=== PATIENT | female | born 1945 | race Caucasian/White ===

== ENCOUNTER → 2024-04-02 | Outpatient (CLI) | payer OTHER ==
[2024-04-02 21:55] VITALS: PULSE 139; RESP 8
[2024-04-02 22:30] VITALS: PULSE 112; RESP 18
[2024-04-02 23:03] VITALS: PULSE 127; RESP 16
[2024-04-02 23:31] VITALS: PULSE 119; RESP 14
[2024-04-03] VITALS (11 sets, daily range): PULSE 65–141; RESP 12–16
== END | disposition home or self-care (01) ==
LOC: SLP 20:37
PROVIDERS: ATTEND Family Medicine
DX: G47.33 Obstructive sleep apnea (adult) (pediatric) (principal)
CPT/HCPCS: 95810

== ENCOUNTER 2024-04-26 18:25 | Emergency (ER) | payer OTHER ==
[~2024-04-26] VITALS: Ht 165.1 cm; Wt 63.5 kg
[~2024-04-26 18:25] MED LIST: AMIO200T44 PO; APIX5TAB PO; ATOR20TA65 PO; BUSP15 PO; CLON0.1T PO; DIAZ5TAB PO; HYDR-3421 PO; LEVO88CA4 PO; LOSA50TA64 PO; METO25 PO; SERT-439 PO; TRAV2.5D6 OP; TRAZ-253 PO; ZOLP10TA2 PO
--- NOTE | 2024-04-26 18:39 | ERN ---
General Chief Complaint: Suicidal Ideation Stated Complaint: SUICIDAL IDEATIONS Time Seen by MD: 18:35 Time Seen by Midlevel: 18:35 Source: patient, EMS History of Present Illness Initial Comments 78F, hx afib, HTN, DLD, BIB EMS from home for depression, lack of eating, and SI. Patient reports that she has an hx of depression, not currently medicated. She reports that lately she has not wanted to live, so she has stopped taking her medications thinking that she'll . No fevers, vomiting, CP or other symptoms. She denies ETOH use or drug abuse. Allergies: Coded Allergies: Penicillins (Unverified Allergy, Unknown, 04/16/24) Home Meds Active Scripts Metoprolol Tartrate (Lopressor) 25 Mg Tab, 25 MG PO BID, #60 TAB Prov:HECTOR ROLAND NURSE FIRST ASSIST 04/22/24 Apixaban (Eliquis) 5 Mg Tablet, 5 MG PO BID, #60 TAB Prov:HECTOR ROLNAD NURSE FIRST ASSIST 04/22/24 Amiodarone HCl (Pacerone) 200 Mg Tablet, 200 MG PO BID, #60 TAB Prov:HECTOR ROLAND NURSE FIRST ASSIST 04/22/24 Reported Medications Losartan Potassium (Losartan Potassium) 50 Mg Tablet, 1 TAB PO DAILY for 30 Days, #30 TAB 0 Refills 04/19/24 Zolpidem Tartrate (Ambien) 10 Mg Tablet, 1 TAB PO HSPRN PRN for sleep for 30 Days, #30 TAB 0 Refills 04/19/24 Buspirone HCl (Buspar) 15 Mg Tab, 1 TAB PO HS for 30 Days, #60 TAB 0 Refills 04/19/24 Sertraline HCl (Sertraline HCl) 50 Mg Tablet, 1 TAB PO HS for 30 Days, #30 TAB 0 Refills 04/19/24 Levothyroxine Sodium (Levothyroxine) 88 Mcg Capsule, 1 CAP PO ACBKFST for 30 Days, #30 CAP 0 Refills 04/19/24 Hydroxyzine HCl (Hydroxyzine HCl) 25 Mg Tablet, 1 TAB PO TID for anxiety for 30 Days, #90 TAB 0 Refills 04/19/24 Trazodone HCl (Desyrel) 50 Mg Tab, 1 TAB PO HS for 30 Days, #30 TAB 0 Refills 04/19/24 Diazepam (Valium) 5 Mg Tablet, 1 TAB PO [id number] PRN for anxiety for 30 Days, #60 TAB 0 Refills 04/19/24 Atorvastatin Calcium (Atorvastatin Calcium) 20 Mg Tablet, 1 TAB PO HS for 30 Days, #30 TAB 0 Refills 04/19/24 Travoprost (Travoprost) 0.004 % Drops, 1 DROP OP HS for 30 Days, #2.5 ML 0 Refills 04/19/24 Clonidine HCl (Clonidine HCl) 0.1 Mg Tablet, 1 TAB PO BID for 30 Days, #30 TAB 0 Refills 04/19/24 Discontinued Reported Medications Valsartan (Valsartan) 160 Mg Tablet, 1 TAB PO DAILY for 30 Days, #30 TAB 0 R efills 04/19/24 Metoprolol Succinate (Metoprolol Succinate) 25 Mg Tab.er.24h, 1 TAB PO DAILY for 30 Days, #30 TAB 0 Refills 04/19/24 Past Medical History Past Medical History: A-Fib, Other Medical History Other: SUICIDAL IDEATIONS Past Surgical History: Unknown Female( History) History: Not Applicable ROS Dictation CONSTITUTIONAL: No chills, no fever, no weakness, no diaphoresis, no malaise. HEAD/FACE: No signs of trauma. EENT: No eye pain, no blurred vision, no tearing, no double vision, no ear pain, no ear discharge, no nose pain, no nasal congestion, no throat pain, no throat swelling, no mouth pain. RESPIRATORY: No cough, no orthopnea, no SOB, no stridor, no wheezing. CARDIOVASCULAR: No chest pain, no edema, no palpitations, no syncope. GASTROINTESTINAL/ABDOMINAL: No abdominal pain, no constipation, no diarrhea, no nausea, no vomiting. GENITOURINARY: No abnormal discharge, no dysuria, no frequent urination, no hematuria. No complaints of pain in the genitals. MUSCULOSKELETAL: No back pain, no gout, no joint pain, no joint swelling, no muscle pain, no muscle stiffness, no neck pain. INTEGUMENTARY: No change in color, no change in hair/nails, no dryness, no lesion, no lumps, no rash. NEUROLOGICAL/PSYCH: Suicidal ideation HEMATOLOGIC/LYMPHATIC: Not anemic, no history of blood clots, no apparent bleeding, no bruising, glands not swollen. All Systems Negative, Except as Noted. Physical Exam Physical Exam Dictation VITAL SIGNS: Reviewed. GENERAL APPEARANCE: Alert, oriented x3, no acute distress, obese. HEAD AND FACE: Non-traumatic. EYES: PERRL, pink conjunctivas, eyelid no trauma, anterior chamber clear. EARS: Pinnas intact and no signs of trauma or erythema. Ear canals clear and no discharge. TMs no erythema. NOSE: No discharge, no bleeding. OROPHARYNX: Mouth normal, teeth no caries, tongue pink. Pharynx clear, no erythema. Tonsils no exudates, no abscesses noted. Mucous membrane moist. NECK: Supple, non-tender, no thyromegaly, no masses, no JVD, no bruits. BREAST: Deferred. CHEST: No tenderness, no crepitus, no paradoxical movement, no retractions. LUNGS: Clear, well-ventilated, symmetric, no rales, no wheezing, no rhonchi, no stridor, good breath sounds bilaterally. HEART: Regular rate, regular rhythm, no murmur, no gallops. VASCULAR: No peripheral edema. ABDOMEN: Soft, positive bowel sounds, nondistended, no guarding, nontender, no rebound, no masses no hepatomegaly, no splenomegaly, no Alfaro's sign, no hernias. RECTAL: Deferred. GENITAL: Deferred. NEUROLOGICAL: Normal speech, gross motor function intact, gross sensory function intact. MUSCULOSKELETAL: Neck nontender, full range of motion, back nontender, full range of motion. EXTREMITIES: Nontender, full range of motion. SKIN: Color pink, dry, no turgor, no rash, no lacerations, no abrasions, no contusions. LYMPHATICS: Deferred. Results Laboratory and Microbiology Lab and Micro Result Laboratory Tests Test 04/26/24 18:43 04/26/24 20:42 White Blood Count 6.4 K/uL (4.8-10.8) Red Blood Count 3.33 MIL/uL (4.00-5.50) L Hemoglobin 9.9 g/dL (12.0-16.0) L Hematocrit 29.9 % (36-48) L Mean Corpuscular Volume 89.8 fL (79-99) Mean Corpuscular Hemoglobin 29.7 pg (27.0-33.0) Mean Corpuscular Hemoglobin Concent 33.1 g/dL (32.0-36.0) Red Cell Distribution Width 14.9 % (11.0-15.5) Platelet Count 277 K/uL (130-400) Mean Platelet Volume 10.3 fL (7.5-10.5) Immature Granulocyte % (Auto) 0.5 % (0-1) Neutrophils (%) (Auto) 65.1 % (40.0-77.0) Lymphocytes (%) (Auto) 20.4 % (21.0-51.0) L Monocytes (%) (Auto) 9.7 % (3.0-13.0) Eosinophils (%) (Auto) 4.0 % (0.0-8.0) Basophils (%) (Auto) 0.3 % (0.0-5.0) Neutrophils # (Auto) 4.2 K/uL (1.8-7.7) Lymphocytes # (Auto) 1.3 K/uL (1.0-4.8) Monocytes # (Auto) 0.6 K/uL (0.1-1.0) Eosinophils # (Auto) 0.26 K/uL (0.00-0.70) Basophils # (Auto) 0.02 K/uL (0.00-0.20) Absolute Immature Granulocyte (auto 0.03 K/uL (0-1) Nucleated Red Blood Cells 0.0 % (0.0-0.19) Sodium Level 138 mmol/L (136-145) Potassium Level 3.7 mmol/L (3.5-5.1) Chloride Level 104 mmol/L (101-111) Carbon Dioxide Level 29 mmol/L (21-32) Blood Urea Nitrogen 5 mg/dL (7-18) L Creatinine 0.9 mg/dL (0.5-1.0) Glomerular Filtration Rate Calc 66 mL/min (>90) Random Glucose 98 mg/dL (70-105) Total Calcium 9.3 mg/dL (8.5-10.1) Total Creatine Kinase 117 U/L (21-232) # Salicylates Level < 2.8 mg/dL (2.8-20.0) L Acetaminophen Level < 1 mcg/mL (10-30) L Serum Alcohol < 3 mg/dL (0-10) Urine Color COLORLESS (YELLOW) Urine Appearance CLEAR (CLEAR) Urine pH 6.0 (5.0-8.0) Urine Specific [place] 1.003 (1.001-1.031) Urine Protein NEGATIVE mg/dL (NEGATIVE) Urine Glucose (UA) NEGATIVE mg/dL (NEGATIVE) Urine Ketones NEGATIVE mg/dL (NEGATIVE) Urine Occult Blood NEGATIVE (NEGATIVE) Urine Nitrate NEGATIVE (NEGATIVE) Urine Bilirubin NEGATIVE mg/dL (NEGATIVE) Urine Urobilinogen 0.2 mg/dL (0.2-1.0) Urine Leukocyte Esterase 75 [place]/uL (NEGATIVE) H Urine RBC 0-1 /HPF (0-1) Urine WBC 6-10 /HPF (0-1) H Urine Squamous Epithelial Cells RARE /HPF (0-2) Urine Bacteria None /HPF (None Seen) Urine Opiates Screen NEGATIVE (NEGATIVE) Urine Barbiturates Screen NEGATIVE (NEGATIVE) Urine Phencyclidine Screen NEGATIVE (NEGATIVE) Urine Amphetamines Screen NEGATIVE (NEGATIVE) Urine Benzodiazepines Screen NEGATIVE (NEGATIVE) Urine Cocaine Screen NEGATIVE (NEGATIVE) Urine Marijuana (THC) Screen NEGATIVE (NEGATIVE) Labs Reviewed?: Yes EKG/XRAY/US/CT/MRI X-RAY Comment REASON: cp ORDERING PHYSICIAN: CHINO CALLES DO PROCEDURE: CXR1VW - CHEST 1VW CHEST 1VW HISTORY: Chest pain COMPARISON: None FINDINGS: A frontal projection of the chest was obtained. Prominent interstitial markings are seen with possible superimposed infiltrates. The heart is borderline enlarged. Degenerative changes are seen. No evidence of aortic calcification is seen. IMPRESSION: 1. Prominent interstitial markings are seen with possible superimposed infiltrates. DICTATED BY: MONY BUTTERFIELD MD DATE: 04/26/242051 MDM MDM: Differential diagnosis: Suicide ideation, psychosis, depression Rationale: 78F, hx afib, HTN, DLD, BIB EMS from home for depression, lack of eating, and SI. Patient reports that she has an hx of depression, not currently medicated. She reports that lately she has not wanted to live, so she has stopped taking her medications thinking that she'll . No fevers, vomiting, CP or other symptoms. She denies ETOH use or drug abuse. Per physical examination patient is in no acute distress, nonlabored breathing. Labs obtained indicate anemia with hemoglobin of 9.9 otherwise nonspecific. Drug screen negative. Patient is medically cleared for psychiatric evaluation. Patient accepted at [facility] for psychiatric inpatient. Previous outside records reviewed: Old ER visits. Risk of complication and/or morbidity or mortality of patient management: None Medications-Per medication reconciliation Need for hospitalization: Patient does meet criteria for hospitalization at psychiatric inpatient facility Need for emergency major/minor surgery: No There are no social concerns with this patient. Prescription drug management Prescriptions will include symptomatic care Patient's prior external medical records from other ER visits were reviewed by me as indicated. Prior testing and results from previous visits were reviewed. Prior tests were taken into account with medical decision making and resource utilization, independent historian/historians were used to obtain complete medical history. I independently interpreted the test that were performed, results were reviewed by me and considered findings on radiology if ordered. Medical management and examination interpretation discussions were had by me with other qualified healthcare professionals as indicated for the patient's care. ED Course Orders Procedure Category Date Status Time Cbc With Differential LAB 04/26/24 Complete 18:28 Alcohol, Blood LAB 04/26/24 Complete 18:28 Salicylate LAB 04/26/24 Complete 18:28 Acetaminophen LAB 04/26/24 Complete 18:28 Urinalysis Profile LAB 04/26/24 Complete 18:28 Chest 1vw RAD 04/26/24 Resulted 18:28 12 Lead Ekg Tracing- EKG 04/26/24 Complete Technical 18:28 0.9%Nacl 1000ml (Ns PHA 04/26/24 Complete 1000ml) 18:30 Creatine Kinase, Total LAB 04/26/24 Complete 18:28 Basic Metabolic Panel LAB 04/26/24 Complete 18:28 Drug Screen Urine LAB 04/26/24 Complete 18:28 Culture Urine JUAN F 04/26/24 In Process 21:33 Current Medications Medications (Trade) Dose Ordered Sig/Kathy Route PRN Reason Start Time Stop Time Status Last Admin Dose Admin Sodium Chloride 1,000 ml @ 125 mls/hr ONCE ONCE IV 04/26/24 18:30 04/27/24 02:29 DC 04/26/24 20:02 Vital Signs Date Time Temp Pulse Resp B/P (MAP) Pulse Ox O2 Delivery O2 Flow Rate FiO2 04/27/24 05:50 98.2 65 17 123/77 98 Room Air* 0 04/27/24 03:15 98.4 61 16 132/85 98 Room Air* 0 21 04/27/24 01:49 98.6 63 18 126/80 98 Room Air* 0 04/27/24 00:36 98.6 62 18 128/76 98 Room Air* 0 21 04/26/24 21:37 98.8 62 18 132/74 98 Room Air* 0 21 04/26/24 20:02 98.8 66 18 154/64 98 Room Air* 0 21 04/26/24 18:40 98.8 62 18 150/70 98 Room Air* 0 21 04/26/24 18:28 98.8 65 20 131/64 98 Room Air 0 DX & DISP Disposition: Transfer (Psychiatric inpatient facility) Departure Impression: Primary Impression: Suicide ideation Condition: Stable Referrals: GELY FERREIRA DO (PCP) I performed the substantive portion of the visit. I have reviewed and personally made and approve the management plan that is documented in the notes by myself or the TANIA. I acknowledge full responsibility for the patient's management plan. CHINO CALLES DO Apr 26, 2024 18:39 JEFFREY CAMACHO Apr 27, 2024 01:55
[2024-04-26 18:51] LABS: BASOPHILS # (AUTO) 0.02 K/uL (0.00-0.20); BASOPHILS % (AUTO) 0.3 % (0.0-5.0); EOSINOPHILS # (AUTO) 0.26 K/uL (0.00-0.70); HEMATOCRIT 29.9 % (36-48); IMMATURE GRANULOCYTE ABSOLUTE 0.03 K/uL (0-1); LYMPHOCYTES # (AUTO) 1.3 K/uL (1.0-4.8); LYMPHOCYTES % (AUTO) 20.4 % (21.0-51.0); MEAN CORPUSCULAR HEMOGLOBIN 29.7 pg (27.0-33.0); MEAN CORPUSCULAR HGB CONC 33.1 g/dL (32.0-36.0); MEAN CORPUSCULAR VOLUME 89.8 fL (79-99); MONOCYTES # (AUTO) 0.6 K/uL (0.1-1.0); MONOCYTES % (AUTO) 9.7 % (3.0-13.0); NEUTROPHILS # (AUTO) 4.2 K/uL (1.8-7.7); NEUTROPHILS % (AUTO) 65.1 % (40.0-77.0); PLATELET COUNT (AUTO) 277 K/uL (130-400); RED BLOOD CELL COUNT(AUTO) 3.33 MIL/uL (4.00-5.50); RED CELL DISTRIBUTION WIDTH 14.9 % (11.0-15.5); WHITE BLOOD COUNT (AUTO) 6.4 K/uL (4.8-10.8)
[2024-04-26 19:10] LABS: CARBON DIOXIDE 29 mmol/L (21-32); CHLORIDE 104 mmol/L (101-111); CREATININE 0.9 mg/dL (0.5-1.0); GLOMERULAR FILTR. RATE CALC 66 mL/min (>90); GLUCOSE,RANDOM 98 mg/dL (70-105); POTASSIUM 3.7 mmol/L (3.5-5.1); SODIUM SERUM 138 mmol/L (136-145); UREA NITROGEN, BLOOD 5 mg/dL (7-18)
[2024-04-26 19:14] LABS: ALCOHOL, BLOOD < 3 mg/dL (0-10); CREATINE KINASE, TOTAL 117 U/L (21-232)
[2024-04-26 19:15] LABS: ACETAMINOPHEN < 1 mcg/mL (10-30); SALICYLATE < 2.8 mg/dL (2.8-20.0)
[2024-04-26] MEDS: 0.9%NACL 1000ML 1,000 ML IV ONE (20:02)
--- NOTE | 2024-04-26 20:56 | HMCIMG ---
CHEST 1VW HISTORY: Chest pain COMPARISON: None FINDINGS: A frontal projection of the chest was obtained. Prominent interstitial markings are seen with possible superimposed infiltrates. The heart is borderline enlarged. Degenerative changes are seen. No evidence of aortic calcification is seen. IMPRESSION: 1. Prominent interstitial markings are seen with possible superimposed infiltrates.
[2024-04-26 21:15] LABS: APPEARANCE,URINE CLEAR (CLEAR); BILIRUBIN,URINE NEGATIVE (NEGATIVE); COLOR,URINE COLORLESS (YELLOW); GLUCOSE, URINE (UA) NEGATIVE (NEGATIVE); KETONES,URINE NEGATIVE (NEGATIVE); LEUKOCYTE ESTERASE ,URINE 75 Leu/uL (NEGATIVE); NITRATE,URINE NEGATIVE (NEGATIVE); OCCULT BLOOD,URINE NEGATIVE (NEGATIVE); PROTEIN,URINE NEGATIVE (NEGATIVE); UROBILINOGEN,URINE 0.2 mg/dL (0.2-1.0)
[2024-04-26 21:22] LABS: AMPHET/METH SCREEN,URINE NEGATIVE (NEGATIVE); BARBITURATE SCREEN, URINE NEGATIVE (NEGATIVE); BENZODIAZEPINES SCREEN,URINE NEGATIVE (NEGATIVE); CANNABINOID SCREEN,URINE NEGATIVE (NEGATIVE); COCAINE SCREEN,URINE NEGATIVE (NEGATIVE); OPIATE SCREEN,URINE NEGATIVE (NEGATIVE); PHENCYCLIDINE SCREEN,URINE NEGATIVE (NEGATIVE)
[2024-04-26 21:33] LABS: ADD UA MICROSCOPIC YES
--- NOTE | 2024-04-26 21:33 | NUR ---
SKYE JOYA CONTACTED TO INITIATE SCREENING
[2024-04-26 21:42] LABS: RBC,URINE 0-1 /HPF (0-1); SQUAMOUS EPITHELIAL CELL,UR RARE /HPF (0-2)
--- NOTE | 2024-04-26 21:51 | NUR ---
SPOKE WITH GUEVARA SILVEIRA, [facility], WILL BE HERE TO SCREEN PATIENT IN APPROXIMATELY 2 HOURS.
--- NOTE | 2024-04-27 00:37 | NUR ---
TROPICASL AT BEDSIDE ASSESSING PATIENT
--- NOTE | 2024-04-27 01:30 | NUR ---
PER CEE HAQ, PATIENT WILL BE REFERRED FOR INPATIENT TREATMENT DUE TO THE FACT THAT PATIENT LIVES ALONE AND DOES NOT HAVE ANYONE TO SAFEGUARD THE PATIENT IF DISCHARGED.
--- NOTE | 2024-04-27 05:30 | EKG ---
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 Supervisor: [id number] : 1945 Requested By: CHINO CALLES Order Number: [id number] Reading MD: Fatimah Ojeda Measurements Intervals [place] Rate: 68 P: 0 MT: 63 QRS: 33 QRSD: 92 T: 39 QT: 423 QTc: 426 Interpretive Statements Sinus rhythm Ventricular premature complex Biatrial enlargement Borderline ST elevation, lateral leads Compared to ECG 04/16/2024 17:57:28 Ventricular premature complex(es) now present Atrial abnormality now present Atrial fibrillation no longer present ST (T wave) deviation still present Electronically Signed On 04-27-2024 08:46:05 [employer]OCK [employer]IM[employer] INSTRU[employer] by Fatimah Ojeda Please click the below link to view image of tracing.
[2024-04-27 05:50] VITALS: BP 123/77; PULSE 65; RESP 17; TEMP 98.2; O2SAT 98
--- NOTE | 2024-04-27 06:31 | NUR ---
REPORT GIVEN TO BHARATHI EDDY AT [facility]. AWAITING TRANSPORTATION BY [facility], WILL CALL [facility] WHEN PATIENT LEAVES ER WITH [facility]. [phone]
== END 2024-04-27 06:54 ==
LOC: EDH 18:25
DX: R45.851 Suicidal ideations (principal); F32.A Depression, unspecified; I10 Essential (primary) hypertension; I48.91 Unspecified atrial fibrillation; Z79.01 Long term (current) use of anticoagulants; Z79.899 Other long term (current) drug therapy; Z88.0 Allergy status to penicillin
CPT/HCPCS: 99285; 71045; 82550; 80048; 80305; 85025; 87086; 36415; 93005; 81001; G0481; J7030

== ENCOUNTER 2024-09-09 12:33 | Emergency (ER) | payer OTHER ==
[~2024-09-09] VITALS: Ht 162.6 cm; Wt 56.2 kg
[~2024-09-09 12:33] MED LIST changes: -LEVO88CA4 PO; +LEVO88CA5 PO; +ZOLP-685 PO; -ZOLP10TA2 PO
--- NOTE | 2024-09-09 12:48 | ERN ---
ED Note History of Present Illness Stated Complaint: OTHER Time Seen by MD: 12:34 Dictation: PATIENT IS A 78-YEAR-OLD FEMALE COMING IN VIA EMS AFTER HER NEIGHBOR WHERE THEY ARE WHEN SHE WAS WALKING OUT OF HER HOUSE TELLING HIM THAT SHE WAS GOING TO BE WALKING TO THE STORE SHE SAID SHE DOES HAVE ROUTINELY HOWEVER THE NEIGHBORS NOTICED THAT SHE HAD A STRONG GAS SMELL IN HER HOUSE AND THAT HER GAS STOVE WAS TURNED OFF. SHE IS CURRENTLY ALERT AND ORIENTED X4 SPEECH IS CLEAR SHE IS FEELING WEEKS SINCE YESTERDAY BUT NO OTHER COMPLAINTS OF VOICE. Allergies: Coded Allergies: Penicillins (Unverified Allergy, Unknown, 04/16/24) Home Meds Active Scripts Metoprolol Tartrate (Lopressor) 25 Mg Tab, 25 MG PO BID, #60 TAB Prov:HECTOR ROLAND COFFEE GRINDER 04/22/24 Apixaban (Eliquis) 5 Mg Tablet, 5 MG PO BID, #60 TAB Prov:HECTOR ROLAND COFFEE GRINDER 04/22/24 Amiodarone HCl (Pacerone) 200 Mg Tablet, 200 MG PO BID, #60 TAB Prov:HECTOR ROLAND COFFEE GRINDER 04/22/24 Reported Medications Losartan Potassium (Losartan Potassium) 50 Mg Tablet, 1 TAB PO DAILY for 30 Days, #30 TAB 0 Refills 04/19/24 Zolpidem Tartrate (Ambien) 10 Mg Tablet, 1 TAB PO HSPRN PRN for sleep for 30 Days, #30 TAB 0 Refills 04/19/24 Buspirone HCl (Buspar) 15 Mg Tab, 1 TAB PO HS for 30 Days, #60 TAB 0 Refills 04/19/24 Sertraline HCl (Sertraline HCl) 50 Mg Tablet, 1 TAB PO HS for 30 Days, #30 TAB 0 Refills 04/19/24 Levothyroxine Sodium (Levothyroxine) 88 Mcg Capsule, 1 CAP PO ACBKFST for 30 Days, #30 CAP 0 Refills 04/19/24 Hydroxyzine HCl (Hydroxyzine HCl) 25 Mg Tablet, 1 TAB PO TID for anxiety for 30 Days, #90 TAB 0 Refills 04/19/24 Trazodone HCl (Desyrel) 50 Mg Tab, 1 TAB PO HS for 30 Days, #30 TAB 0 Refills 04/19/24 Diazepam (Valium) 5 Mg Tablet, 1 TAB PO [id number] PRN for anxiety for 30 Days, #60 TAB 0 Refills 04/19/24 Atorvastatin Calcium (Atorvastatin Calcium) 20 Mg Tablet, 1 TAB PO HS for 30 Days, #30 TAB 0 Refills 04/19/24 Travoprost (Travoprost) 0.004 % Drops, 1 DROP OP HS for 30 Days, #2.5 ML 0 Refills 04/19/24 Clonidine HCl (Clonidine HCl) 0.1 Mg Tablet, 1 TAB PO BID for 30 Days, #30 TAB 0 Refills 04/19/24 Past Medical History Past Medical History: A-Fib, Other Additional Past Medical Hx: SUICIDAL IDEATIONS Surgical History: Unknown History: Not Applicable RN Note Reviewed/Agreed w/PFSH: Yes Review of System Dictation CONSTITUTIONAL: NEGATIVE EXCEPT FOR HPI HEAD/FACE: NEGATIVE EXCEPT FOR HPI EENT: NEGATIVE EXCEPT FOR HPI RESPIRATORY: NEGATIVE EXCEPT FOR HPI MILD SOB GASTROINTESTINAL/ABDOMINAL: NEGATIVE EXCEPT FOR HPI GENITOURINARY: NEGATIVE EXCEPT FOR HPI MUSCULOSKELETAL: NEGATIVE EXCEPT FOR HPI INTEGUMENTARY: NEGATIVE EXCEPT FOR HPI NEUROLOGICAL/PSYCH: NEGATIVE EXCEPT FOR HPI HEMATOLOGIC/LYMPHATIC: NEGATIVE EXCEPT FOR HPI ALL SYSTEMS NEGATIVE, EXCEPT NOTED ABOVE. 13 POINT REVIEW OF SYSTEMS ASSESSED AND ALL NEGATIVE EXCEPT FOR ABOVE. Initial Vital Sign VS Vital Signs Date Time Temp Pulse Resp B/P (MAP) Pulse Ox O2 Delivery O2 Flow Rate FiO2 09/09/24 12:35 97.9 76 20 138/70 97 Room Air 09/09/24 13:30 0 21 Physical Exam Dictation VITAL SIGNS REVIEWED GENERAL APPEARANCE: ALERT, ORIENTED X 3, NO ACUTE DISTRESS, WELL DEVELOPED, NOURISHED. HEAD AND FACE: NON-TRAUMATIC. EYES: PERRL, PINK CONJUNCTIVAS, EYELID NO TRAUMA, ANTERIOR CHAMBER WITH ARCUS SENILIS. EARS: PINNAS INTACT AND NO SIGNS OF TRAUMA OR ERYTHEMA EAR CANALS CLEAR AND NO DISCHARGE TM NO ERYTHEMA NOSE: NO DISCHARGE, NO BLEEDING. OROPHARYNX: MOUTH NORMAL, TONGUE PINK, PHARYNX CLEAR,NO ERYTHEMA, TONSILS NO EXUDATES, NO ABSCESSES NOTED, MUCOUS MEMBRANE MOIST NECK: SUPPLE, NON-TENDER, NO THYROMEGALY, NO MASSES, NO JVD, NO BRUITS BREAST:DEFERRED CHEST:NO TENDERNESS, NO CREPITUS, NO PARADOXICAL MOVEMENT, NO RETRACTIONS LUNGS:CLEAR, WELL-VENTILATED, SYMMETRIC, NO RALES, NO WHEEZING, NO RHONCHI, NO STRIDOR, GOOD BREATH SOUNDS BILATERALLY HEART: REGULAR RATE, REGULAR RHYTHM, NO MURMUR, NO GALLOPS VASCULAR: NO PERIPHERAL EDEMA, ABDOMEN: SOFT, POSITIVE BOWEL SOUNDS, NONDISTENDED, NO GUARDING, NONTENDER, NO REBOUND, NO MASSES NO HEPATOMEGALY, NO SPLENOMEGALY, NO JONES'S SIGN, NO HERNIAS. RECTAL: DEFERRED GENITAL: DEFERRED NEUROLOGICAL: NORMAL SPEECH, MOTOR FUNCTION INTACT, SENSORY FUNCTION INTACT MUSCULOSKELETAL: NECK NONTENDER, FULL RANGE OF MOTION, BACK NONTENDER, FULL RANGE OF MOTION, EXTREMITIES: NONTENDER, FULL RANGE OF MOTION SKIN: COLOR PINK, DRY, NO TURGOR, NO RASH, NO LACERATIONS, NO ABRASIONS, NO CONTUSIONS. LYMPHATIC: DEFERRED Results (Laboratory/Radiology) Laboratory/Radiology Laboratory Tests Test 09/09/24 12:59 White Blood Count 5.1 K/uL (4.8-10.8) Red Blood Count 3.86 MIL/uL (4.00-5.50) L Hemoglobin 11.2 g/dL (12.0-16.0) L Hematocrit 33.8 % (36-48) L Mean Corpuscular Volume 87.6 fL (79-99) Mean Corpuscular Hemoglobin 29.0 pg (27.0-33.0) Mean Corpuscular Hemoglobin Concent 33.1 g/dL (32.0-36.0) Red Cell Distribution Width 17.5 % (11.0-15.5) H Platelet Count 272 K/uL (130-400) Mean Platelet Volume 10.0 fL (7.5-10.5) Immature Granulocyte % (Auto) 0.2 % (0-1) Neutrophils (%) (Auto) 63.3 % (40.0-77.0) Lymphocytes (%) (Auto) 21.9 % (21.0-51.0) Monocytes (%) (Auto) 10.1 % (3.0-13.0) Eosinophils (%) (Auto) 3.9 % (0.0-8.0) Basophils (%) (Auto) 0.6 % (0.0-5.0) Neutrophils # (Auto) 3.2 K/uL (1.8-7.7) Lymphocytes # (Auto) 1.1 K/uL (1.0-4.8) Monocytes # (Auto) 0.5 K/uL (0.1-1.0) Eosinophils # (Auto) 0.20 K/uL (0.00-0.70) Basophils # (Auto) 0.03 K/uL (0.00-0.20) Absolute Immature Granulocyte (auto 0.01 K/uL (0-1) Nucleated Red Blood Cells 0.0 % (0.0-0.19) Carboxyhemoglobin 0.9 % (0-1.5) Sodium Level 144 mmol/L (136-145) Potassium Level 3.4 mmol/L (3.5-5.1) L Chloride Level 106 mmol/L (101-111) Carbon Dioxide Level 26 mmol/L (21-32) Blood Urea Nitrogen 24 mg/dL (7-18) H Creatinine 2.2 mg/dL (0.5-1.0) H Glomerular Filtration Rate Calc 23 mL/min (>90) Random Glucose 98 mg/dL (70-105) Total Calcium 9.8 mg/dL (8.5-10.1) Troponin I High Sensitivity 9 ng/L (4-50) Labs Reviewed?: Yes EKG Comment: EKG SINUS RHYTHM/HEART RATE 64/LEFT ATRIAL ENLARGEMENT/NO ECTOPY ED Course ED Course Orders Procedure Category Date Status Time Carboxyhemoglobin LAB 09/09/24 Complete 12:46 Cbc With Differential LAB 09/09/24 Complete 12:46 Troponin I High LAB 09/09/24 Complete Sensitivity 12:46 Urinalysis Profile LAB 09/09/24 Logged 12:46 12 Lead Ekg Tracing- EKG 09/09/24 Complete Technical 12:46 Chest 1vw RAD 09/09/24 Resulted 12:46 Basic Metabolic Panel LAB 09/09/24 Complete 12:46 Potassium Bicarb/Cit PHA 09/09/24 Complete Ac 25meq (K-Lyte Ta 14:00 0.9%Nacl 1000ml (Ns PHA 09/09/24 Complete 1000ml) 14:30 Current Medications Medications (Trade) Dose Ordered Sig/Kathy Route PRN Reason Start Time Stop Time Status Last Admin Dose Admin Potassium Bicarbonate (K-Lyte Tablet Eff 25 Meq Tablet.eff) 25 meq ONCE ONCE PO 09/09/24 14:00 09/09/24 14:01 DC 09/09/24 14:28 Sodium Chloride 1,000 ml @ 0 mls/hr ONCE ONCE IV 09/09/24 14:30 09/09/24 14:31 DC 09/09/24 14:28 Vital Signs Date Time Temp Pulse Resp B/P (MAP) Pulse Ox O2 Delivery O2 Flow Rate FiO2 09/09/24 13:30 98.1 66 19 113/50 98 Room Air* 0 21 09/09/24 12:35 97.9 76 20 138/70 97 Room Air 1532/PATIENT RECEIVE NORMAL SALINE 1 L. SHE STATES SHE DOES NOT WISH TO BE ADMITTED TO THE HOSPITAL SHE IS AWARE THAT WAS MILDLY DEHYDRATED, CARBOXYHEMOGLOBIN IS NORMAL NO CARDIAC EVENT. SHE WISHES TO GO HOME AND STATES SHE WILL CALL HER FAMILY TO PICK HER UP. HEART Score Response (Comments) Value EKG: Repolarization changes 1 Age: > 65yrs (+2) 2 Risk Factors: 1-2 risk factors (+1) 1 Initial Troponin: Normal limit (0) 0 Total 4 Medical Decision Making MDM MDM: DIFFERENTIAL DIAGNOSIS: CARBON MONOXIDE POISONING/ACS/AMI/PNEUMONIA/BRONCHITIS/ELECTROLYTE IMBALANCE/DEHYDRATION RATIONALE: TESTS CONSIDERED AND ORDERED SECONDARY TO SHARED DECISION MAKING INCLUDE: EKG/LABS/RADIOLOGY PREVIOUS OUTSIDE RECORDS REVIEWED: OLD ER VISITS. RISK OF COMPLICATION AND/OR MORBIDITY OR MORTALITY OF PATIENT MANAGEMENT: NONE MEDICATIONS-PER MEDICATION RECONCILIATION NEED FOR HOSPITALIZATION: PATIENT DOES NOT MEET CRITERIA FOR HOSPITALIZATION. NO PATIENT REFUSES AND WISHES TO GO HOME. NEED FOR EMERGENCY MAJOR/MINOR SURGERY: NO THERE ARE NO SOCIAL CONCERNS WITH THIS PATIENT. PRESCRIPTION DRUG MANAGEMENT NONE PRESCRIPTIONS WILL INCLUDE SYMPTOMATIC CARE PATIENT'S PRIOR EXTERNAL MEDICAL RECORDS FROM OTHER ER VISITS WERE REVIEWED BY ME INDICATED. PRIOR TESTING AND RESULTS FROM PREVIOUS VISITS WERE REVIEWED. PRIOR TESTS WERE TAKEN INTO ACCOUNT WITH MEDICAL DECISION MAKING AND RESOURCE UTILIZATION, INDEPENDENT HISTORIAN/HISTORIANS WERE USED TO OBTAIN COMPLETE MEDICAL HISTORY. I INDEPENDENTLY INTERPRETED THE TEST THAT WERE PERFORMED, RESULTS WERE REVIEWED BY ME AND CONSIDERED FINDINGS ON RADIOLOGY IF ORDERED. MEDICAL MANAGEMENT AND EXAMINATION INTERPRETATION DISCUSSIONS WERE HAD BY ME WITH OTHER QUALIFIED HEALTHCARE PROFESSIONALS INDICATED FOR THE PATIENT'S CARE. DX & DISP Disposition: Discharge Departure Impression: Primary Impression: Exposure to carbon monoxide Additional Impressions: Dehydration, Hypokalemia, Anemia of chronic renal failure, stage 3a Condition: Stable Additional Instructions: FOLLOW-UP WITH PRIMARY CARE PROVIDER IN 1 TO 2 DAYS. TAKE MEDICATIONS DIRECTED HERE IN THE EMERGENCY ROOM. OKAY TO CONTINUE HOME MEDICATIONS UNLESS OTHERWISE DISCUSSED DURING YOUR VISIT IN THE EMERGENCY ROOM TODAY. RETURN TO YOUR NEAREST EMERGENCY ROOM IF SYMPTOMS WORSEN OR IF THERE IS NO IMPROVEMENT. CALL 911 IF YOU NEED IMMEDIATE ASSISTANCE. TAKE TYLENOL OR MOTRIN [id number] NEEDED AND IF NO CONTRAINDICATIONS ARE PRESENT. INCREASE ORAL HYDRATION. A WOUND CULTURE OR URINE CULTURE WAS ORDERED HERE IN THE EMERGENCY ROOM DEPARTMENT PLEASE FOLLOW-UP WITH PRIMARY CARE PROVIDER AND ADVISE THEM TO GET REPEAT PORTS FROM OUR FACILITY. IF YOU HAD ANY JOSSELYN WRAP/SPLINTS THAT WERE APPLIED HERE, PLEASE DO NOT REMOVE THEM UNTIL YOU SEE YOUR PRIMARY CARE OR SPECIALTY. DIET AND ACTIVITY TOLERATED, INCREASE YOUR WATER INTAKE. AND SEE YOUR PRIMARY CARE DOCTOR FOR FOLLOW UP. Referrals: GELY FERREIRA DO (PCP) Time of Disposition: 15:36 I have reviewed the case, and I agree with, Diagnosis and Plan JORGE MONTIEL NP Sep 09, 2024 12:48
--- NOTE | 2024-09-09 13:09 | EKG ---
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
[2024-09-09 13:19] LABS: IMMATURE GRANULOCYTE ABSOLUTE 0.01 K/uL (0-1); NUCLEATED RED BLOOD CELLS 0.0 % (0.0-0.19); PLATELET COUNT (AUTO) 272 K/uL (130-400); RED BLOOD CELL COUNT(AUTO) 3.86 MIL/uL (4.00-5.50); RED CELL DISTRIBUTION WIDTH 17.5 % (11.0-15.5); WHITE BLOOD COUNT (AUTO) 5.1 K/uL (4.8-10.8)
[2024-09-09 13:31] LABS: CREATININE 2.2 mg/dL (0.5-1.0); GLOMERULAR FILTR. RATE CALC 23.0 mL/min (>90); GLUCOSE,RANDOM 98.0 mg/dL (70-105); SODIUM SERUM 144.0 mmol/L (136-145); UREA NITROGEN, BLOOD 24.0 mg/dL (7-18)
[2024-09-09] MEDS: 0.9%NACL 1000ML 1,000 ML IV ONE (14:28)
--- NOTE | 2024-09-09 14:30 | HMCIMG ---
EXAM: CR Chest, 1 View. CLINICAL HISTORY: CHEST PAIN/SHORTNESS A BREATH COMPARISON: Radiograph dated April 26, 2024 FINDINGS: LUNGS: The lungs show no infiltrate or other acute finding. PLEURAL SPACES: No evidence of pleural effusion or pneumothorax. MEDIASTINUM: The cardiomediastinal silhouette is within normal limits. Hiatal hernia. BONES: No acute osseous abnormality. IMPRESSION: No acute cardiopulmonary pathology is evident. /[place]
[2024-09-09 16:29] VITALS: BP 146/67; PULSE 69; RESP 18; TEMP 97.7; O2SAT 98
--- NOTE | 2024-09-09 16:29 | NUR ---
DC PATIENT WAS DC'D BY JORGE MONTIEL NP TODAY I DC'D PATIENTS IV WITH CATH STILL INTACT AND APPLIED 2X2 GAUZE WITH COBAN, I EXPLAINED TO PATIENT TO FOLLOW UP WITH PCP, AND PROVIDED INFO BASED ON DIAGNOSIS, I ANSWERED ANY FOLLOW UP WITH QUESTIONS THE PATIENT HAD, PATIENT AMBULATED OUT OF ED, NO COMPLICATIONS Addendum: 09/09/24 at 1632 by SULEMA PATIENT OUT IN FRONT OF ED WAITING FOR UBER RIDE TO "MOTEL [facility]", VIVEK GARVINTRANSPORT AIDE MADE AWARE AND HELPING PATIENT OUT IN FRONT WITH PROCESS
== END 2024-09-09 16:20 | disposition home or self-care (01) ==
LOC: EDH 12:33
DX: E86.0 Dehydration (principal); E87.6 Hypokalemia; D63.1 Anemia in chronic kidney disease; I48.91 Unspecified atrial fibrillation; N18.30 Chronic kidney disease, stage 3 unspecified; Z79.01 Long term (current) use of anticoagulants; T58.11XA Toxic effect of carbon monoxide from utility gas, accidental (unintentional), initial encounter; Z79.899 Other long term (current) drug therapy; Z88.0 Allergy status to penicillin; Y92.89 Other specified places as the place of occurrence of the external cause
CPT/HCPCS: 99285; 96360; 71045; 84484; 80048; 85025; 82375; 36415; 93005; J7030

== ENCOUNTER 2024-09-23 10:48 | Emergency (ER) | payer OTHER ==
[~2024-09-23] VITALS: Ht 160 cm; Wt 57.6 kg
--- NOTE | 2024-09-23 11:36 | HMCIMG ---
EXAM: CT Head Without IV contrast. CLINICAL HISTORY: fall TECHNIQUE: Axial computed tomography images of the head/brain without intravenous contrast. COMPARISON: 04/18/2024. FINDINGS: BRAIN: No acute bleed or infarct. Stable chronic ischemic and atrophic changes. 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 VENTRICLES: No hydrocephalus. ORBITS: The orbits are unremarkable. SINUSES AND MASTOIDS: The paranasal sinuses and mastoid air cells are clear. BONES: No fracture. SOFT TISSUES: Unremarkable. IMPRESSION: 1. No acute bleed or infarct. Stable chronic ischemic and atrophic changes. 2. 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 /[place]
[2024-09-23] MEDS ORDERED: ACET-66 PO (11:46)
--- NOTE | 2024-09-23 11:46 | ERN ---
General Chief Complaint: Mechanical Fall Stated Complaint: FALL Time Seen by MD: 10:53 Source: patient History of Present Illness Initial Comments Patient is a 78-year-old female coming in complaining of left-sided headache. Per patient she fell while in the shower and hit herself in the head. She did not lose consciousness and states that the pain is localized to the left te mporal region. Allergies: Coded Allergies: Penicillins (Unverified Allergy, Unknown, 04/16/24) Home Meds Active Scripts Metoprolol Tartrate (Lopressor) 25 Mg Tab, 25 MG PO BID, #60 TAB Prov:HECTOR ROLAND HE[employer]ULATOR 04/22/24 Apixaban (Eliquis) 5 Mg Tablet, 5 MG PO BID, #60 TAB Prov:HECTOR ROLAND HEAT REGULATOR 04/22/24 Amiodarone HCl (Pacerone) 200 Mg Tablet, 200 MG PO BID, #60 TAB Prov:HECTOR ROLAND HEAT REGULATOR 04/22/24 Reported Medications Losartan Potassium (Losartan Potassium) 50 Mg Tablet, 1 TAB PO DAILY for 30 Days, #30 TAB 0 Refills 04/19/24 Zolpidem Tartrate (Ambien) 10 Mg Tablet, 1 TAB PO HSPRN PRN for sleep for 30 Days, #30 TAB 0 Refills 04/19/24 Buspirone HCl (Buspar) 15 Mg Tab, 1 TAB PO HS for 30 Days, #60 TAB 0 Refills 04/19/24 Sertraline HCl (Sertraline HCl) 50 Mg Tablet, 1 TAB PO HS for 30 Days, #30 TAB 0 Refills 04/19/24 Levothyroxine Sodium (Levothyroxine) 88 Mcg Capsule, 1 CAP PO ACBKFST for 30 Days, #30 CAP 0 Refills 04/19/24 Hydroxyzine HCl (Hydroxyzine HCl) 25 Mg Tablet, 1 TAB PO TID for anxiety for 30 Days, #90 TAB 0 Refills 04/19/24 Trazodone HCl (Desyrel) 50 Mg Tab, 1 TAB PO HS for 30 Days, #30 TAB 0 Refills 04/19/24 Diazepam (Valium) 5 Mg Tablet, 1 TAB PO [id number] PRN for anxiety for 30 Days, #60 TAB 0 Refills 04/19/24 Atorvastatin Calcium (Atorvastatin Calcium) 20 Mg Tablet, 1 TAB PO HS for 30 Days, #30 TAB 0 Refills 04/19/24 Travoprost (Travoprost) 0.004 % Drops, 1 DROP OP HS for 30 Days, #2.5 ML 0 Refills 04/19/24 Clonidine HCl (Clonidine HCl) 0.1 Mg Tablet, 1 TAB PO BID for 30 Days, #30 TAB 0 Refills 04/19/24 Past Medical History Past Medical History: Hypertension Medical History Other: SUICIDAL IDEATIONS Past Surgical History: Other Female( History) History: Not Applicable ROS Dictation CONSTITUTIONAL: No chills, no fever, no weakness, no diaphoresis, no malaise. HEAD/FACE: No signs of trauma. EENT: No eye pain, no blurred vision, no tearing, no double vision, no ear pain, no ear discharge, no nose pain, no nasal congestion, no throat pain, no throat swelling, no mouth pain. RESPIRATORY: No cough, no orthopnea, no SOB, no stridor, no wheezing. CARDIOVASCULAR: No chest pain, no edema, no palpitations, no syncope. GASTROINTESTINAL/ABDOMINAL: No abdominal pain, no constipation, no diarrhea, no nausea, no vomiting. GENITOURINARY: No abnormal discharge, no dysuria, no frequent urination, no hematuria. No complaints of pain in the genitals. MUSCULOSKELETAL: No back pain, no gout, no joint pain, no joint swelling, no muscle pain, no muscle stiffness, no neck pain. INTEGUMENTARY: No change in color, no change in hair/nails, no dryness, no lesion, no lumps, no rash. NEUROLOGICAL/PSYCH: No anxiety, not depressed, no emotional problem, no headache, no numbness, no pre-existing deficit, no history of seizures, no tremors, no weakness. HEMATOLOGIC/LYMPHATIC: Not anemic, no history of blood clots, no apparent bleeding, no bruising, glands not swollen. All Systems Negative, Except as Noted. Physical Exam Physical Exam Dictation VITAL SIGNS: Reviewed. GENERAL APPEARANCE: Alert, oriented x3, no acute distress, obese. HEAD AND FACE: Non-traumatic. Left temporal region tenderness on palpation EYES: PERRL, pink conjunctivas, eyelid no trauma, anterior chamber clear. EARS: Pinnas intact and no signs of trauma or erythema. Ear canals clear and no discharge. TMs no erythema. NOSE: No discharge, no bleeding. OROPHARYNX: Mouth normal, teeth no caries, tongue pink. Pharynx clear, no erythema. Tonsils no exudates, no abscesses noted. Mucous membrane moist. NECK: Supple, non-tender, no thyromegaly, no masses, no JVD, no bruits. BREAST: Deferred. CHEST: No tenderness, no crepitus, no paradoxical movement, no retractions. LUNGS: Clear, well-ventilated, symmetric, no rales, no wheezing, no rhonchi, no stridor, good breath sounds bilaterally. HEART: Regular rate, regular rhythm, no murmur, no gallops. VASCULAR: No peripheral edema. ABDOMEN: Soft, positive bowel sounds, nondistended, no guarding, nontender, no rebound, no masses no hepatomegaly, no splenomegaly, no Alfaro's sign, no hernias. RECTAL: Deferred. GENITAL: Deferred. NEUROLOGICAL: Normal speech, gross motor function intact, gross sensory function intact. MUSCULOSKELETAL: Neck nontender, full range of motion, back nontender, full range of motion. EXTREMITIES: Nontender, full range of motion. SKIN: Color pink, dry, no turgor, no rash, no lacerations, no abrasions, no contusions. LYMPHATICS: Deferred. Results Laboratory and Microbiology Labs Reviewed?: Yes EKG/XRAY/US/CT/MRI CT Scan Comment [place] [address] [place] [id number] IMAGING REPORT Signed PATIENT: ALPA BUITRAGO MR#: [id number] : 1945 SEX: F AGE: 78 LOCATION: [facility] ORDER 1110 STATUS: REG REPORT#: [id number] SERVICE 1110 REASON: fall ORDERING PHYSICIAN: JENARO SALAZAR MD PROCEDURE: HEAD WO - CT HEAD/BRAIN W/O CONTRAST EXAM: CT Head Without IV contrast. CLINICAL HISTORY: fall TECHNIQUE: Axial computed tomography images of the head/brain without intravenous contrast. COMPARISON: 04/18/2024. FINDINGS: BRAIN: No acute bleed or infarct. Stable chronic ischemic and atrophic changes. 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 VENTRICLES: No hydrocephalus. ORBITS: The orbits are unremarkable. SINUSES AND MASTOIDS: The paranasal sinuses and mastoid air cells are clear. BONES: No fracture. SOFT TISSUES: Unremarkable. IMPRESSION: 1. No acute bleed or infarct. Stable chronic ischemic and atrophic changes. 2. 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 /[place] DICTATED BY: SHANE GONSALEZ MD DATE: 09/23/24 1234 ELECTRONICALLY SIGNED BY: SHANE GONSALEZ MD DATE: 09/23/24 1234 [facility] MDM: Differential diagnosis: Fall, head concussion, Rationale: Tests considered and ordered secondary to shared decision making include: Previous outside records reviewed: Old ER visits. Risk of complication and/or morbidity or mortality of patient management: None Medications-Per medication reconciliation Patient is a 78-year-old female coming in complaining of left-sided headache. Per patient she fell down while in the shower hitting herself in the left side of the head. CT did not disclose acute findings. Patient will be discharged in stable condition with a diagnosis of fall and hit concussion. Patient has been neurologically stable since throughout ER visit. ED Course Orders Procedure Category Date Status Time Ct Head/Brain W/O CT 09/23/24 Resulted Contrast 11:10 Vital Signs Date Time Temp Pulse Resp B/P (MAP) Pulse Ox O2 Delivery O2 Flow Rate FiO2 09/23/24 10:50 97.9 59 20 149/70 99 Room Air 0 DX & DISP Disposition: Discharge Departure Impression: Primary Impression: Accident due to mechanical fall without injury Additional Impression: Head injury Condition: Stable Scripts Acetaminophen (Tylenol) 500 Mg Tab 1 TAB PO Q6HPRN PRN for pain or fever for 5 Days, #30 TAB 0 Refills Prov: JENARO SALAZAR MD 09/23/24 Additional Instructions: FOLLOW-UP WITH PRIMARY CARE PROVIDER IN 1 TO 2 DAYS. TAKE MEDICATIONS DIRECTED HERE IN THE EMERGENCY ROOM. OKAY TO CONTINUE HOME MEDICATIONS UNLESS OTHERWISE DISCUSSED DURING YOUR VISIT IN THE EMERGENCY ROOM TODAY. RETURN TO YOUR NEAREST EMERGENCY ROOM IF SYMPTOMS WORSEN OR IF THERE IS NO IMPROVEMENT. CALL 911 IF YOU NEED IMMEDIATE ASSISTANCE. TAKE TYLENOL [id number] NEEDED AND IF NO CONTRAINDICATIONS ARE PRESENT. INCREASE ORAL HYDRATION. A WOUND CULTURE OR URINE CULTURE WAS ORDERED HERE IN THE EMERGENCY ROOM DEPARTMENT PLEASE FOLLOW-UP WITH PRIMARY CARE PROVIDER AND ADVISE THEM TO GET REPORTS FROM OUR FACILITY. IF YOU HAD ANY JOSSELYN WRAP/SPLINTS THAT WERE APPLIED HERE, PLEASE DO NOT REMOVE THEM UNTIL YOU SEE YOUR PRIMARY CARE OR SPECIALTY. Referrals: Referrals: GELY FERREIRA DO (PCP) Time of Disposition: 11:46 JENARO SALAZAR MD Sep 23, 2024 11:46
[2024-09-23 11:49] VITALS: BP 141/70; PULSE 60; RESP 20; TEMP 97.9; O2SAT 99
== END 2024-09-23 11:56 | disposition home or self-care (01) ==
LOC: EDH 10:48
DX: S09.90XA Unspecified injury of head, initial encounter (principal); I10 Essential (primary) hypertension; Z79.01 Long term (current) use of anticoagulants; Z79.899 Other long term (current) drug therapy; Z86.73 Personal history of transient ischemic attack (TIA), and cerebral infarction without residual deficits; Z88.0 Allergy status to penicillin; W18.39XA Other fall on same level, initial encounter; Y93.E1 Activity, personal bathing and showering; Y92.89 Other specified places as the place of occurrence of the external cause; Y99.8 Other external cause status
CPT/HCPCS: 70450; 99284